=== PATIENT | female | born 1965 | race Caucasian/White ===

== ENCOUNTER 2016-11-26 07:03 | Emergency (ER) | payer MEDICARE ==
[2016-11-26 07:35] LABS: BASOPHIL 2.1 % (0-2); EOSINOPHIL 2.5 % (0-5); HCT 48.5 % (37.0-47.0); HGB 16.6 g/dl (12.5-16.0); LYMPHOCYTE 27.6 % (15-48); MCH 31.1 pg (25.0-31.0); MCHC 34.2 g/dL (32.0-36.0); MCV 90.8 fL (78.0-100.0); MONOCYTE 9.2 % (0-12); MPV 10.6 fL (6.0-9.5); NEUTROPHIL 58.6 % (41-80); PLT 317 K/uL (150-400); RBC 5.34 M/uL (4.20-5.40); RDW 12.8 % (11.5-14.0); WBC 6.1 K/uL (4.0-10.5)
[2016-11-26 07:52] LABS: ALBUMIN 4.4 g/dL (3.5-5.0); BILIRUBIN - TOTAL 0.4 mg/dL (0.1-1.0); CREATININE 0.5 mg/dL (0.5-1.0); GLOBULIN (CALCULATION) 3.3 g/dL (2.2-4.2); POTASSIUM 4.2 mmol/L (3.5-5.1); TOTAL PROTEIN 7.7 g/dL (6.4-8.3)
== END 2016-11-26 09:52 | disposition home or self-care (01) ==
LOC: FER 07:03
PROVIDERS: Emergency Medicine
DX: R10.11 Right upper quadrant pain (principal); E11.65 Type 2 diabetes mellitus with hyperglycemia; I10 Essential (primary) hypertension; K21.9 Gastro-esophageal reflux disease without esophagitis; Z88.0 Allergy status to penicillin; Z88.1 Allergy status to other antibiotic agents; Z88.5 Allergy status to narcotic agent; Z82.49 Family history of ischemic heart disease and other diseases of the circulatory system; Z98.61 Coronary angioplasty status; Z98.890 Other specified postprocedural states
CPT/HCPCS: 36415; 74022; 80053; 83690; 84484; 85025; 85379; 93005; J1170; J2405

== ENCOUNTER 2021-01-03 19:40 | Emergency (ER) | payer OTHER ==
[~2021-01-03 19:40] MED LIST: ACTOS30 MG PO; ALOGLIPTIN25 MG PO; AMARYL2 MG PO; ANTI-FUNGAL CR198 GM TOP; ASCORBIC ACID500 MG PO; BACLOFEN 10MG T10 MG PO; BACTRIM DS TAB1 EACH PO; BENTYL10 MG PO; CIPRO500 M1 PO; CYMBALTA 30MG C30 MG PO; CYMBALTA60 MG PO; DIFLUCAN150 MG PO; DURAGESIC 50MC50 MCG TD; EFFEXOR XR150 MG PO; ELAVIL25 MG PO; ETODOLAC400 MG PO; ETODOLAC500 MG PO; FARXIGA5 MG PO; FEOSOL325 MG PO; FLEXERIL10 MG PO; GABAPENTIN800 MG PO; HAIR PO; HYDROXYZINE 10M10 MG PO; KLOR-CON 1010 MEQ PO; LIPITOR 10MG TA10 MG PO; LISINOPRIL40 MG PO; LOPRESSOR50 MG PO; MIRALAX17 G1 PO; MIRAPEX0.25 MG PO; NORCO 5-325 TA1 EACH PO; ONDANSETRON ODT4 MG SL; OXYCONTIN 10MG10 MG PO; PERCOCET 10/321 EACH PO; PERCOCET 5-3251 EACH PO; PRILOSEC20 MG PO; PRINIVIL20 MG PO; PROZAC20 MG PO; REGLAN5 MG PO; REMERON15 MG PO; ROBAXIN750 MG PO; SENNA8.6 MG PO; TOPROL XL 50 MG50 MG PO; TOUJEO MAX300 UNIT/1 SC; TOUJEO SOLOSTAR 300 SC; VANCO 1 GR1 GM/250 M IV; VENTOLIN HFA IN18 GM INH; VITAMIN B-121000 MC1 PO; VITAMIN D2000 UNI1 PO; VITAMIN D400 UNIT PO; XARELTO10 MG PO; XARELTO15 MG PO; ZANTAC150 MG PO; ZINC SULFATE220 M1 PO; ZOFRAN4 MG PO; ZOFRAN8 MG PO; ZYPREXA 5MG TABL5 MG PO; [UNRECOGNIZED DRUG - OTHER] PO; [UNRECOGNIZED DRUG - OTHER] PO
== END 2021-01-03 22:36 | disposition home or self-care (01) ==
LOC: FER 19:40
DX: S92.351A Displaced fracture of fifth metatarsal bone, right foot, initial encounter for closed fracture (principal); M54.5 Low back pain; Z88.1 Allergy status to other antibiotic agents; Z88.5 Allergy status to narcotic agent; Z91.013 Allergy to seafood; W19.XXXA Unspecified fall, initial encounter; Y92.009 Unspecified place in unspecified non-institutional (private) residence as the place of occurrence of the external cause
CPT/HCPCS: 72131; 73630; 96372; J1170; J2405

== ENCOUNTER 2021-01-06 20:01 | Emergency (ER) | payer OTHER ==
[2021-01-07] MEDS ORDERED: ROBAXIN750 MG PO (01:44)
== END 2021-01-07 02:05 | disposition home or self-care (01) ==
LOC: FER 20:01
DX: M54.5 Low back pain (principal); G89.29 Other chronic pain; M62.838 Other muscle spasm; I10 Essential (primary) hypertension; I25.2 Old myocardial infarction; E11.9 Type 2 diabetes mellitus without complications; Z98.890 Other specified postprocedural states; Z88.0 Allergy status to penicillin; Z88.1 Allergy status to other antibiotic agents; Z88.5 Allergy status to narcotic agent; Z88.8 Allergy status to other drugs, medicaments and biological substances; Z91.013 Allergy to seafood
CPT/HCPCS: 72131; 96372; J1100; J1170; J1885; J2405

== ENCOUNTER 2022-01-09 21:07 | Emergency (ER) | payer OTHER ==
[2022-01-09 22:39] LABS: BASOPHIL 0.9 % (0-2); EOSINOPHIL 1.4 % (0-5); HCT 48.6 % (37.0-47.0); HGB 15.4 g/dl (12.5-16.0); LYMPHOCYTE 18.4 % (15-48); MCH 28.9 pg (25.0-31.0); MCHC 31.7 g/dL (32.0-36.0); MCV 91.2 fL (78.0-100.0); MONOCYTE 5.4 % (0-12); MPV 10.2 fL (6.0-9.5); NEUTROPHIL 73.6 % (41-80); NRBC 0; PLT 288 K/uL (150-400); RBC 5.33 M/uL (4.20-5.40); RDW 12.4 % (11.5-14.0); WBC 7.4 K/uL (4.0-10.5)
[2022-01-09 23:01] LABS: ALBUMIN 3.4 g/dL (3.4-5.0); BILIRUBIN - TOTAL 0.3 mg/dL (0.2-1.0); BUN/CREAT RATIO (CALC) 21.2 RATIO; CREATININE 0.66 mg/dL (0.51-0.95); GLOBULIN (CALCULATION) 4.6 g/dL; POTASSIUM 4.5 mmol/L (3.5-5.1)
[2022-01-10 00:08] LABS: BILIRUBIN NEGATIVE (NEGATIVE); BLOOD 1+ Ery/uL (NEGATIVE); CLARITY CLEAR (CLEAR); COLOR YELLOW (YELLOW); GLUCOSE (U) 3+ mg/dL (NORMAL); LEUKOCYTES TRACE Leu/uL (NEGATIVE); NITRITE NEGATIVE (NEGATIVE); PROTEIN NEGATIVE (NEGATIVE); SPECIFIC GRAVITY 1.015 (1.001-1.030); UROBILINOGEN 0.2 mg/dL (0.2-1.0); pH 5.5 (5.0-9.0)
[2022-01-10 00:16] LABS: BACTERIA TRACE; YEAST PRESENT
[2022-01-10 00:17] LABS: AMORPHOUS URATES CRYSTALS MODERATE
== END 2022-01-10 01:26 | disposition home or self-care (01) ==
LOC: FER 21:07
PROVIDERS: Physician Assistant
DX: R22.43 Localized swelling, mass and lump, lower limb, bilateral (principal); E11.65 Type 2 diabetes mellitus with hyperglycemia; F03.90 Unspecified dementia, unspecified severity, without behavioral disturbance, psychotic disturbance, mood disturbance, and anxiety; Z28.310 Unvaccinated for COVID-19; Z88.1 Allergy status to other antibiotic agents; Z88.5 Allergy status to narcotic agent
CPT/HCPCS: 36415; 71045; 80053; 81001; 83880; 85025; 87088; 93970

== ENCOUNTER 2022-05-09 10:03 | Emergency (ER) | payer OTHER ==
[~2022-05-09 10:03] MED LIST changes: +CLEOCIN300 MG PO; +ETODOLAC200 MG PO; +FARXIGA10 MG PO; +LANTUS **100 UNITS/ SC; +LASIX40 MG PO; +NOVOLOG VI100 UNIT/1 SQ; +ONDANSETRON HCL4 MG PO; +PERCOCET 10-321 EACH PO; +SYNTHROID25 MCG PO; +VRAYLAR1.5 MG PO; +ZOLOFT50 MG PO
[2022-05-09 12:30] LABS: EOSINOPHIL 1.7 % (0-5); HCT 44.5 % (37.0-47.0); HGB 14.5 g/dl (12.5-16.0); LYMPHOCYTE 16.2 % (15-48); MCH 28.9 pg (25.0-31.0); MCHC 32.6 g/dL (32.0-36.0); MCV 88.8 fL (78.0-100.0); MPV 10.3 fL (6.0-9.5); NEUTROPHIL 74.6 % (41-80); NRBC 0; PLT 359 K/uL (150-400); RBC 5.01 M/uL (4.20-5.40); RDW 13.1 % (11.5-14.0); WBC 9.8 K/uL (4.0-10.5)
[2022-05-09 12:35] LABS: INR 0.99 (0.9-1.2); PROTHROMBIN TIME 12.8 SECONDS (11.9-13.9); PTT 26.1 SECONDS (24.9-34.6)
[2022-05-09 12:59] LABS: ALBUMIN 3.5 g/dL (3.4-5.0); BUN/CREAT RATIO (CALC) 28.2 RATIO; CREATININE 0.71 mg/dL (0.51-0.95); GLOBULIN (CALCULATION) 4.5 g/dL; POTASSIUM 4.4 mmol/L (3.5-5.1)
[2022-05-09 15:46] LABS: BILIRUBIN NEGATIVE (NEGATIVE); BLOOD TRACE-INTACT Ery/uL (NEGATIVE); CLARITY CLEAR (CLEAR); COLOR YELLOW (YELLOW); GLUCOSE (U) 3+ mg/dL (NORMAL); LEUKOCYTES 1+ Leu/uL (NEGATIVE); NITRITE NEGATIVE (NEGATIVE); PROTEIN NEGATIVE (NEGATIVE); SPECIFIC GRAVITY <=1.005 (1.001-1.030); UROBILINOGEN 0.2 mg/dL (0.2-1.0)
[2022-05-09 16:22] LABS: BACTERIA 1+; YEAST PRESENT
[2022-05-09 16:30] LABS: BILIRUBIN - TOTAL 0.4 mg/dL (0.2-1.0)
== END 2022-05-09 18:20 | disposition home or self-care (01) ==
LOC: FER 10:03
PROVIDERS: Emergency Medicine
DX: I50.9 Heart failure, unspecified (principal); B37.2 Candidiasis of skin and nail; E11.9 Type 2 diabetes mellitus without complications; Z28.310 Unvaccinated for COVID-19; Z88.0 Allergy status to penicillin; Z88.1 Allergy status to other antibiotic agents; Z88.5 Allergy status to narcotic agent; Z79.4 Long term (current) use of insulin; Z79.899 Other long term (current) drug therapy
CPT/HCPCS: 36415; 71045; 80053; 81001; 83880; 84484; 85025; 85610; 85730; 93005; J1170; J2175; J2405; Q0162